=== PATIENT | female | born 2000 | race Caucasian/White ===

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

== ENCOUNTER 2020-03-09 14:05 | Outpatient (CLI) | payer OTHER, SELFPAY ==
[2020-03-10 11:45] LABS: COVID-19 RT-PCR UVMMC Result Negative (Negative)
== END 2020-03-09 14:25 ==
LOC: LBN 14:12 → LBO 14:18
PROVIDERS: PCP Pediatrics; Visit Provider Nurse Practitioner Pediatrics
DX: R50.9 Fever, unspecified (principal)
CPT/HCPCS: U0003

== ENCOUNTER 2020-08-17 14:11 | Outpatient (REF) | payer BC, SELFPAY ==
[2020-08-19 06:04] LABS: Chlamydia amplified RNA Negative (Negative); N gonorrhoeae amplified RNA Negative (Negative); Source URINE
== END 2020-08-17 14:31 ==
LOC: LBN 14:11
PROVIDERS: PCP Pediatrics; Visit Provider Nurse Practitioner Women's Health
DX: Z11.3 Encounter for screening for infections with a predominantly sexual mode of transmission (principal)
CPT/HCPCS: 87491; 87591